=== PATIENT | male | born 1980 | race African-American/Black ===

== ENCOUNTER 2017-07-24 06:36 | Emergency (ER) | payer OTHER, MEDICAID ==
[~2017-07-24] VITALS: Ht 177.8 cm; Wt 99.8 kg
[2017-07-24 06:48] VITALS: BP_SYST 152
[2017-07-24] MEDS ORDERED: KETOROLAC TROMETHAMINE 60 MG/2 ML VIAL IM ONE (07:30)
== END 2017-07-24 08:40 | disposition home or self-care (01) ==
LOC: SED 06:36
DX: S16.1XXA Strain of muscle, fascia and tendon at neck level, initial encounter (principal); V59.40XA Driver of pick-up truck or van injured in collision with unspecified motor vehicles in traffic accident, initial encounter; Y93.89 Activity, other specified; Y92.488 Other paved roadways as the place of occurrence of the external cause; Y99.8 Other external cause status
CPT/HCPCS: 72050; 96372; 99284; J1885